=== PATIENT | male | born 2000 | race Caucasian/White ===

== ENCOUNTER 2024-09-19 07:01 | Emergency (ER) | payer BC, SELFPAY ==
[2024-09-19] VITALS (25 sets, daily range): BP systolic 107–131; BP diastolic 57–72; PULSE 46–87; RESP 16; TEMP 37.3; O2SAT 93–99
--- NOTE | 2024-09-19 07:55 | W.ED.GENAD ---
Discharge Plan Disposition Patient Disposition: Home Condition: Stable Discharge Details Clinical Impression: Hematemesis, Gastritis Primary Care Provider: Eran Rios ED Provider: Gabe Herring Home Meds and New Rx's Prescriptions: New famotidine [Pepcid] 20 mg tablet 20 mg PO BID Qty: 30 0RF Discharge Instructions Instructions: Gastritis ED Additional Instructions: Please follow-up with general surgery for upper endoscopy. Please contact your primary care physician to arrange follow-up. Return to the ER immediately for any worsening or new concerning symptoms. Referrals: [facility] [Provider Group] Eran Rios [Primary Care Provider] - [facility] General Mode of arrival: ambulatory. Date/Time Provider Initiated Documentation: 09/19/24 07:05. Limitations to Documentation: no limitations. Information obtained by: patient. HPI Narrative: 23yo male here with chief complaint of vomiting blood. Patient notes he woke up this morning and was feeling nauseous. He was retching and he vomited up sputum mixed with blood. He then vomited yellow emesis. He continues to have mild nausea and mid abdominal discomfort. He has had no recent bright red blood per rectum or melena. He does have generalized fatigue. Related Data Home Medications ?Medication ?Instructions ?Recorded ?Confirmed famotidine 20 mg tablet (Pepcid) 20 mg PO BID #30 tabs 09/19/24 Previous Rx's ?Medication ?Instructions ?Recorded famotidine 20 mg tablet (Pepcid) 20 mg PO BID #30 tabs 09/19/24 Allergies Allergy/AdvReac Type Severity Reaction Status Date / Time No Known Allergies Allergy Unverified 09/19/24 07:05 General Stated Complaint: Abd Prob CAIN: 3 Review of Systems Constitutional Constitutional: Denies fever(s) Cardiovascular Cardiovascular: Denies chest pain Respiratory Respiratory: Denies cough Gastrointestinal Gastrointestinal: Reports as per HPI, Reports nausea, Reports vomiting and Reports hematemesis Exam Const General: cooperative and no acute distress HENMT Mouth: moist mucous membranes Eyes Conjunctivae: normal conjunctivae Sclera: normal sclerae Resp Auscultation: clear to auscultation bilaterally, no rales, no rhonchi and no wheezes Cardio Rate: regular rate and not tachycardic Rhythm: regular rhythm GI Palpation: soft, not firm, no guarding, no masses, not rigid and tender (Mild discomfort) in the epigastrum; with no rebound tenderness Auscultation: normal bowel sounds Skin General skin exam: no rashes or lesions noted Neuro General: patient alert, patient awake and tone normal Extrem General: no edema Course Vital Signs Vital signs: Vital Signs Temperature 37.3 C 09/19/24 07:05 Pulse 86 09/19/24 07:05 Respiratory Rate 16 09/19/24 07:05 Blood Pressure 127/71 09/19/24 07:05 Pulse Oximetry 97 09/19/24 07:05 Temperature 37.3 C 09/19/24 07:08 Temperature Source Temporal Artery Scan 09/19/24 07:08 Pulse 71 09/19/24 07:16 Respiratory Rate 16 09/19/24 07:08 Respiratory Effort Normal, Non-Labored 09/19/24 07:07 Blood Pressure 131/66 09/19/24 07:16 Blood Pressure Mean 88 09/19/24 07:16 Blood Pressure Position Sitting 09/19/24 07:08 Pulse Oximetry 93 09/19/24 07:20 Oxygen Delivery Method Room Air 09/19/24 07:08 Oxygen Flow Rate 0 09/19/24 07:05 Pain Level 3 09/19/24 07:08 Medical Decision Making 808 -- 23yo male with nausea, vomiting and hematemesis this morning. Patient is hemodynamically stable. He does feel fatigued today. Abdominal exam benign. Of note patient did have a couple shots of whiskey last night. Suspect gastritis. Plan to treat with Pepcid. Given fatigue, consider anemia and will check labs. 930 --Labs reviewed and nondiagnostic. Normal hemoglobin. Patient reassessed and has remained stable. No recurrent vomiting. Patient remains hemodynamically stable. Plan for discharge with outpatient follow-up. Usual and customary discharge instructions were reviewed with the patient. Lab Data Lab results reviewed: Yes I reviewed the patient's lab results. Labs: Laboratory Tests Range/Units 09/19/24 08:35 WBC (4.4-10.8) 10^3/uL 9.53 RBC (4.36-5.78) 10^6/uL 4.94 Hgb (13.5-17.5) g/dL 15.1 Hct (40.0-50.0) % 45.3 MCV (80-95) fL 92 MCH (27.0-33.0) pg 30.6 MCHC (32.0-36.0) % 33.3 RDW (11.8-14.1) % 12.3 Plt Count (130-400) 10^3/uL 292 MPV (8.0-11.0) fL 9.2 Immature Gran % % 0.3 Neutrophils % % 70.1 Lymphocytes % % 20.6 Monocytes % % 7.3 Eosinophils % % 1.3 Basophils % % 0.4 Nucleated RBC % (0.0-0.3) % 0.0 Absolute Neutrophils (1.2-6.7) 10^3/uL 6.68 Absolute Lymphocytes (1.2-3.4) 10^3/uL 1.96 Absolute Monocytes (0.1-0.8) 10^3/uL 0.70 Absolute Eosinophils (0.0-0.7) 10^3/uL 0.12 Absolute Basophils (0.0-0.2) 10^3/uL 0.04 Sodium (136-145) mmol/L 144 Potassium (3.5-5.1) mmol/L 4.0 Chloride (98-107) mmol/L 109 H Carbon Dioxide (21.0-32.0) mmol/L 27.2 Anion Gap (3-11) mmol/L 7.8 BUN (7-18) mg/dL 10 Creatinine (0.70-1.30) mg/dL 1.0 Est GFR (CKD-EPI 2020) (mL/min/1.73m2) 109.81 Glucose (74-106) mg/dL 93 Calcium (8.5-10.1) mg/dL 9.4 Total Bilirubin (0.2-1.0) mg/dL 0.57 AST (15-37) U/L 34 ALT (16-63) U/L 23 Alkaline Phosphatase (46-116) U/L 78 Total Protein (6.4-8.2) g/dL 7.5 Albumin (3.4-5.0) g/dL 3.8 Lipase (16-77) U/L 26 Quality:SDOH Health Related Social Needs: No Data to Display PFSH All Active Problems (Updated 09/19/24 @ 09:28 by Gabe Herring MD) Gastritis (Acute) Hematemesis (Acute) Social History Smoking/Tobacco Use Status: Never Smoking risk assessment performed?: Yes Alcohol Intake: current Alcohol Intake frequency: holidays/special occasions only Alcohol type: beer Drug use: Daily Substance use type: marijuana Housing: apartment Do you feel safe at home: Yes Do you feel safe in your relationship?: Yes
[2024-09-19] MEDS: Famotidine 20 MG TAB 40 MG PO (08:24)
[2024-09-19 08:45] LABS: Abs Immature Grans 0.03 10^3/uL (0.0-0.06); Absolute Basophil Count 0.04 10^3/uL (0.0-0.2); Absolute Eosinophil Count 0.12 10^3/uL (0.0-0.7); Absolute Lymphocyte Count 1.96 10^3/uL (1.2-3.4); Absolute Neutrophil Count 6.68 10^3/uL (1.2-6.7); Basophils % 0.4 %; Eosinophils % 1.3 %; HCT 45.3 % (40.0-50.0); HGB 15.1 g/dL (13.5-17.5); Immature Grans % 0.3 %; Lymphocytes % 20.6 %; MCH 30.6 pg (27.0-33.0); MCHC 33.3 % (32.0-36.0); MCV 92 fL (80-95); MPV 9.2 fL (8.0-11.0); Monocytes % 7.3 %; Neutrophils % 70.1 %; Platelet Count 292 10^3/uL (130-400); RBC 4.94 10^6/uL (4.36-5.78); RDW 12.3 % (11.8-14.1); RDW-SD 41.2 fL; WBC 9.53 10^3/uL (4.4-10.8)
[2024-09-19 09:05] LABS: ALT 23 U/L (16-63); AST 34 U/L (15-37); Albumin 3.8 g/dL (3.4-5.0); Alkaline Phosphatase 78 U/L (46-116); Anion Gap 7.8 mmol/L (3-11); BUN 10 mg/dL (7-18); Bilirubin, Total 0.57 mg/dL (0.2-1.0); CO2 27.2 mmol/L (21.0-32.0); Chloride 109 mmol/L (98-107); Estimated GFR 109.81 (mL/min/1.73m2); Glucose 93 mg/dL (74-106); Lipase 26 U/L (16-77); Sodium 144 mmol/L (136-145); Total Protein 7.5 g/dL (6.4-8.2)
[2024-09-19 09:08] LABS: Calcium 9.4 mg/dL (8.5-10.1)
== END 2024-09-19 09:45 | disposition home or self-care (01) ==
PROVIDERS: Emergency Provider Student in an Organized Health Care Education/Training Program; PCP Family Medicine
DX: K29.70 Gastritis, unspecified, without bleeding (principal); K92.0 Hematemesis
CPT/HCPCS: 36415; 80053; 83690; 99283; 85025